=== PATIENT | male | born 1975 | race Caucasian/White ===

== ENCOUNTER 2020-06-21 17:21 | Inpatient (IN) | payer SELFPAY ==
[~2020-06-21] VITALS: Ht 177.8 cm; Wt 77.1 kg
[~2020-06-21 17:21] MED LIST: CEPH500 PO; NAPR500 PO
[2020-06-21 18:31] LABS: BASOPHILS ABSOLUTE AUTO 0.03 K/mm3 (0.00-0.23); BASOPHILS PERCENT AUTO 0 % (0-2); EOSINOPHILS ABSOLUTE AUTO 0.11 K/mm3 (0.00-0.68); EOSINOPHILS PERCENT AUTO 1 % (0-6); Hematocrit 48.2 % (37.0-53.0); Hemoglobin 16.5 g/dL (13.5-17.5); IMMATURE GRAN ABSOLUTE AUTO 0.04 K/mm3 (0.00-0.10); IMMATURE GRAN PERCENT AUTO 0 % (0-1); LYMPHOCYTES ABSOLUTE AUTO 1.47 K/mm3 (0.84-5.20); LYMPHOCYTES PERCENT AUTO 10 % (21-46); MONOCYTES ABSOLUTE AUTO 0.45 K/mm3 (0.16-1.47); MONOCYTES PERCENT AUTO 3 % (4-13); Mean Corpuscular HGB 29.6 pg (26.0-34.0); Mean Corpuscular HGB Conc 34.2 g/dL (31.5-36.5); Mean Corpuscular Volume 86 fL (80-100); Mean Platelet Volume 9.9 fL (9.1-12.4); NEUTROPHILS ABSOLUTE AUTO 13.12 K/mm3 (1.96-9.15); NEUTROPHILS PERCENT AUTO 86 % (41-73); Platelet Count 283 K/mm3 (150-400); RDW Coefficient Variation 12.3 % (11.7-14.2); RDW Standard Deviation 39.1 fL (35.1-46.3); Red Blood Cell Count 5.58 M/mm3 (4.30-5.90); White Blood Cell Count 15.22 K/mm3 (4.00-11.30)
[2020-06-21 18:53] LABS: Alanine Aminotransfer (ALT/SGP 21 U/L (12-78); Albumin, Blood 4.6 g/dL (3.4-5.0); Albumin/Globulin Ratio 1.4 (0.8-1.8); Alk Phos 79 U/L (50-136); Anion Gap 7 mmol/L (6-16); Aspartate Aminotrans (AST/SGOT 19 U/L (12-37); Bilirubin, Total 0.6 mg/dL (0.1-1.0); Blood Urea Nitrogen 14 mg/dL (8-24); CO2, Blood 25 mmol/L (21-32); Calcium, Blood 9.4 mg/dL (8.5-10.1); Chloride, Blood 110 mmol/L (98-108); Creatinine, Blood 0.93 mg/dL (0.60-1.20); Globulin, Blood 3.3 g/dL (2.2-4.0); Glomerular Filtration Rate >60 (60-); Glucose, Blood 117 mg/dL (70-99); Sodium, Blood 142 mmol/L (136-145); Total Protein, Blood 7.9 g/dL (6.4-8.2); Troponin I <0.015 ng/mL (0.000-0.040)
[2020-06-21 20:49] LABS: Source, Urine Clean Catch
[2020-06-21 20:55] LABS: Appearance, Urine Clear (Clear); Bilirubin, Urine Neg (Neg); Blood, Urine 1+ (Neg); Color, Urine Yellow (P-Yellow); Glucose Qualitative, Urine Neg (Neg); Ketones, Urine 3+ (Neg); Leukocyte Esterase, Urine 1+ (Neg); Nitrite, Urine Neg (Neg); Protein, Urine 1+ (Neg); Urobilinogen, Urine NORM (Normal)
[2020-06-21 21:02] LABS: Bacteria Few /hpf; Mucus Light (0-Heavy); Squamous Epithelial Cells Rare /hpf (Few)
[2020-06-22 01:01] LABS: U Amphetamine Screen Not Detected; U Barbituate Screen Not Detected; U Benzodiazapine Screen Not Detected; U Buprenorphine Screen Not Detected; U Cannabinoids Screen DETECTED; U Cocaine Screen Not Detected; U Methadone Screen Not Detected; U Methamphetamine Screen Not Detected; U Opiates Screen DETECTED; U Oxycodone Screen Not Detected; U Phencyclidine Screen Not Detected; U Propoxyphene Screen Not Detected
[2020-06-22 01:06] LABS: BASOPHILS ABSOLUTE AUTO 0.03 K/mm3 (0.00-0.23); BASOPHILS PERCENT AUTO 0 % (0-2); EOSINOPHILS ABSOLUTE AUTO 0.01 K/mm3 (0.00-0.68); EOSINOPHILS PERCENT AUTO 0 % (0-6); Hematocrit 44.7 % (37.0-53.0); Hemoglobin 15.6 g/dL (13.5-17.5); IMMATURE GRAN ABSOLUTE AUTO 0.08 K/mm3 (0.00-0.10); IMMATURE GRAN PERCENT AUTO 0 % (0-1); LYMPHOCYTES ABSOLUTE AUTO 0.82 K/mm3 (0.84-5.20); LYMPHOCYTES PERCENT AUTO 5 % (21-46); MONOCYTES PERCENT AUTO 2 % (4-13); Mean Corpuscular HGB 29.7 pg (26.0-34.0); Mean Corpuscular HGB Conc 34.9 g/dL (31.5-36.5); Mean Corpuscular Volume 85 fL (80-100); Mean Platelet Volume 9.9 fL (9.1-12.4); NEUTROPHILS ABSOLUTE AUTO 16.81 K/mm3 (1.96-9.15); NEUTROPHILS PERCENT AUTO 93 % (41-73); Platelet Count 262 K/mm3 (150-400); RDW Standard Deviation 38.1 fL (35.1-46.3); Red Blood Cell Count 5.25 M/mm3 (4.30-5.90); White Blood Cell Count 18.15 K/mm3 (4.00-11.30)
[2020-06-22 01:24] LABS: Alanine Aminotransfer (ALT/SGP 21 U/L (12-78); Albumin, Blood 3.8 g/dL (3.4-5.0); Albumin/Globulin Ratio 1.1 (0.8-1.8); Alk Phos 69 U/L (50-136); Anion Gap 6 mmol/L (6-16); Aspartate Aminotrans (AST/SGOT 13 U/L (12-37); Bilirubin, Total 0.5 mg/dL (0.1-1.0); Blood Urea Nitrogen 12 mg/dL (8-24); Bun/Creatinine Ratio 16.3 (12.0-20.0); CO2, Blood 23 mmol/L (21-32); Chloride, Blood 112 mmol/L (98-108); Creatinine, Blood 0.74 mg/dL (0.60-1.20); Globulin, Blood 3.4 g/dL (2.2-4.0); Glomerular Filtration Rate >60 (60-); Glucose, Blood 152 mg/dL (70-99); Potassium, Blood 4.1 mmol/L (3.5-5.5); Sodium, Blood 141 mmol/L (136-145); Total Protein, Blood 7.2 g/dL (6.4-8.2)
--- NOTE | 2020-06-22 04:34 | NUR ---
SHIFT SUMMARY ASSUMED CARE OF PT AT 2200. PT IS A/OX4. HEART SOUNDS REGULAR TELE SHOWS SINUS RHYTHMN AND PULSE BETWEEN 45-65 BPM, DENIES CP. LUNG SOUNDS CLEAR. PT C/O NEASEA Q4, MEDICATED PER EMAR, PT BEGINS TO SWEAT WHEN HE DRY HEAVES AND HAS BEEN GOING BACK AND FOR FROM BEING TOO HOT AND TOO COLD. PT C/O PAIN ABOUT Q4, MEDICATED PER EMAR. PT HAS NG TUBE HOOKED TO LOW INTERMITENT SUCTION, PT HAS SMALL AMOUNT OF YELLOW DRAINAGE. PT USES URINAL AT BEDISDE DUE TO EXCESSIVE AMOUNT OF CORDS. CALL LIGHT IN REACH, BED IN LOWEST POSTION, WILL CONTINUE TO MONITOR.
--- NOTE | 2020-06-22 19:33 | NUR ---
SHIFT SUMMARY. A&OX4, INDEPENDENT IN ROOM. PT CONTINUES WITH INTERMTTENT SEVERE LOWER ABD PAIN. PT'S PAIN HAS BEEN CONTROLLED WITH 1MG DILAUDID IV Q4 PRN, POST FIRST DILAUDID ADMINISTRATION PT BECAME NAUSEUS WITH DRY HEAVING, NAUSEA MANAGED WELL WITH CURRENT ORDERS. IV FENTANYL 50MCG WAS GIVEN DILAUDID APPEARED TO CAUSE SEVERE NAUSEA, PT REPORTED NO RELIEF WITH FENTANYL, DILAUDID WAS THEN REORDERED AND PAIN WAS MANAGED THE REMAINDER OF THE SHIFT. ABD XR COMPLETED THIS AM. PT CONTINUES WITH NG TO LOW INTERMITTENT SUCTION, UNABLE TO ACCURATELY DOCUMENT OUTPUT PT IS HAVING ICE CHIPS AND POSSIBLY DRINKING WATER FROM METLED ICE. IV FLUID ORDER COMPLETED AFTER 2L, DR. HANNA NOTIFIED AND RECIEVED ORDER FOR NS IV 75/HR. NO OTHER CHANGES OR CONCERNS.
--- NOTE | 2020-06-22 22:42 | NUR ---
06/22/205 INFORMED ON-CALL MD ABOUT PT'S PAIN MANAGEMENT CONCERNS. SHE REVIEWED HIS TESTS,VITALS AND RADIOLOGY AND DECLINED ANY OTHER MEDICATION CHANGES. WE MAY APPLY A HEATING PAD PRN.
--- NOTE | 2020-06-23 04:08 | NUR ---
CALLED HOSPITALIST INFORMED HOSPITALIST THAT THE NG TUBE IS SUCTIONING A DARK FLUID NOW, INSTEAD OF THE PREVIOUS CLEAR FLUID NOTED. NO NEW ORDERS, WILL CONTINUE TO MONITOR
[2020-06-23 05:38] LABS: BASOPHILS ABSOLUTE AUTO 0.04 K/mm3 (0.00-0.23); BASOPHILS PERCENT AUTO 0 % (0-2); EOSINOPHILS ABSOLUTE AUTO 0.04 K/mm3 (0.00-0.68); EOSINOPHILS PERCENT AUTO 0 % (0-6); Hematocrit 38.1 % (37.0-53.0); Hemoglobin 13.2 g/dL (13.5-17.5); IMMATURE GRAN ABSOLUTE AUTO 0.02 K/mm3 (0.00-0.10); IMMATURE GRAN PERCENT AUTO 0 % (0-1); LYMPHOCYTES ABSOLUTE AUTO 3.37 K/mm3 (0.84-5.20); LYMPHOCYTES PERCENT AUTO 23 % (21-46); MONOCYTES ABSOLUTE AUTO 1.26 K/mm3 (0.16-1.47); MONOCYTES PERCENT AUTO 9 % (4-13); Mean Corpuscular HGB 29.5 pg (26.0-34.0); Mean Corpuscular HGB Conc 34.6 g/dL (31.5-36.5); Mean Corpuscular Volume 85 fL (80-100); Mean Platelet Volume 10.2 fL (9.1-12.4); NEUTROPHILS ABSOLUTE AUTO 9.88 K/mm3 (1.96-9.15); NEUTROPHILS PERCENT AUTO 68 % (41-73); Platelet Count 230 K/mm3 (150-400); RDW Coefficient Variation 12.2 % (11.7-14.2); RDW Standard Deviation 37.8 fL (35.1-46.3); Red Blood Cell Count 4.47 M/mm3 (4.30-5.90); White Blood Cell Count 14.61 K/mm3 (4.00-11.30)
--- NOTE | 2020-06-23 07:47 | NUR ---
06/23/20 0645 PT IN BATHROOM FOR VOIDING. NG CANISTER WITH BROWN LIQUID AT 250 ML AND MARKED. RN HAD BROUGHT PAIN/NAUSEA MEDS HE C/O NOT GETTING ADEQUATE RELIEF THROUGHTOUT THE NIGHT WITH PAIN. PT NOW STATES HE PASSED SOME FLATUS AND HAS "NO" PAIN OR NAUSEA AT THIS TIME. PT HAS ALSO BEEN ASKING FREQEUNTLY FOR ICE CHIPS AND WATER. REMINDED TO ONLY TAKE SMALL AMTS. SEE INTAKE AND OUTPUT TOTALS.
--- NOTE | 2020-06-23 18:17 | NUR ---
SHIFT SUMMARY. PT CONTINUES WITH INTERMITTENT RLQ ABD PAIN THROUGHOUT SHIFT THAT WAS MANAGED WELL WITH CURRENT ORDERS. SEVERITY OF PAIN APPEARS TO HAVE IMPROVED TODAY COMPARED TO YESTERDAY, ALTHOUGH SEVERAL DOSES OF PAIN MEDICATION WERE REQUIRED TO MANAGE PAIN. NO N/V, SOB. PT STARTED ON CLEAR LIQUIDS FOR LUNCH, PT ONLY HAS TAKEN A FEW SIPS INTERMITTENTLY. PT'S MOTHER IN TO VISIT THIS AFTERNOON. NG TO LOW INTERMITTENT SUCTION, BROWN TINGED DRAINAGE WITH SEDIMENT OBSERVED. UNABLE TO ACCURATELY RECORD OUTPUT PT TAKE PO ICE CHIPS AND SMALL AMOUNT OF CLEAR LIQUIDS WILL STILL TO SUCTION. NO OTHER CHANGES OR CONCERNS.
--- NOTE | 2020-06-24 01:39 | NUR ---
06/24/20 0135 PT C/O SEVERE ABDOMINAL PAIN. NG TUBE DRAINING GREEN LIQUID.INFORMED PT THAT HE CAN GET MEDICATED WITH FENTYNL BUT STATES "IT DOESN'T WORK!" INFORMED HIM THAT I CAN BRING HIM A SHOT IN 20 MINUTES. PT IRRITATED ABOUT HAVING TO WAIT 20 MINUTES FOR MED.
[2020-06-24 05:20] LABS: BASOPHILS ABSOLUTE AUTO 0.06 K/mm3 (0.00-0.23); BASOPHILS PERCENT AUTO 0 % (0-2); EOSINOPHILS ABSOLUTE AUTO 0.11 K/mm3 (0.00-0.68); EOSINOPHILS PERCENT AUTO 1 % (0-6); Hematocrit 41.5 % (37.0-53.0); Hemoglobin 14.6 g/dL (13.5-17.5); IMMATURE GRAN ABSOLUTE AUTO 0.05 K/mm3 (0.00-0.10); IMMATURE GRAN PERCENT AUTO 0 % (0-1); LYMPHOCYTES ABSOLUTE AUTO 4.52 K/mm3 (0.84-5.20); LYMPHOCYTES PERCENT AUTO 28 % (21-46); MONOCYTES ABSOLUTE AUTO 1.46 K/mm3 (0.16-1.47); MONOCYTES PERCENT AUTO 9 % (4-13); Mean Corpuscular HGB 29.8 pg (26.0-34.0); Mean Corpuscular HGB Conc 35.2 g/dL (31.5-36.5); Mean Corpuscular Volume 85 fL (80-100); Mean Platelet Volume 10.2 fL (9.1-12.4); NEUTROPHILS PERCENT AUTO 62 % (41-73); Platelet Count 246 K/mm3 (150-400); RDW Standard Deviation 36.8 fL (35.1-46.3)
--- NOTE | 2020-06-24 08:13 | NUR ---
06/24/20 0500 PT MEIDATED PER MAR FOR ABDOMINAL DISCOMFORT. NG TUBE TO LOW INT. SUCTION AND DRAINING GREEN LIQUID. IV FLUIDS AT 75ML/HOUR.
--- NOTE | 2020-06-24 10:37 | NUR ---
ABD CRAMPING AND RESPONSE TO PRN MEDICATIONS: PATIENT REPORTED SUDDEN ONSET OF SHARP, CRAMPING ABDOMINAL PAIN WITH NAUSEA. PATIENT TURNED INTERMITTANT SUCTION BACK ON INDEPENDENTLY. NO CHANGES TO NG DISCHARGE. PATIENT HUNCHED OVER IN BED REQUESTING PRNS. MEDICATED WITH PRN ZOFRAN AND DILAUDID PER PRNS ORDERS (SEE EMAR). PATIENT HAD REPORTED THAT THE DILAUDID MAKES HIM FLUSH AND NAUSEATED. MEDICATED WITH ANTI-EMETIC FIRST. AFTER ADMINISTERING DILAUDID PER POLICY, THE PATIENT REPORTED "FEELING WEIRD" AND "HIGH SHIT". VITALS TAKEN. LOW HR NOTED, CONSISTENT WITH OTHER TIMES DURING HIS ADMISSION. RR STABLE AT 16. PATIENT CONTINUES TO BE ALERT AND ORIENTED AND WAKENS EASILY WHEN RN ENTERS THE ROOM. SP02 STABLE AT 98-100% ON ROOM AIR. PROVIDED WITH A COOL CLOTH, COOL WATER. PATIENT REPORTED FEELING BETTER AFTER 10 MINUTES WITH THE RN IN THE ROOM. PATIENT RESTING IN ROOM WITH CONTINUOUS NIBP ON HIS FINGER FOR SP02 AND HR.
--- NOTE | 2020-06-24 10:51 | NUR ---
NOTIFIED DR. JAVIER OF ABDOMINAL PAIN AND REACTION TO DILAUDID. NO NEW ORDERS AT THIS TIME.
--- NOTE | 2020-06-24 14:03 | NUR ---
NG PLACEMENT: DISCUSSED PLACEMENT OF NG TUBE WITH DR. WAGNER. VERIFIED THAT THE NG TUBE NEEDS TO BE PULLED BACK SLIGHTLY.
--- NOTE | 2020-06-24 19:01 | NUR ---
PAIN CONTROL AND CHANGE TO PRN MEDICATIONS: PATIENT PAIN HAS BEEN CONTROLLED WITH PRN MEDICATIONS THIS AFTERNOON. PATIENT HAS NOT EXPERIENCED A SEVERE EPISODE OF PAIN HE DID THIS MORNING. SPOKE WITH DR. REVELES AND DECREASING THE PRN PAIN MEDICATION TO BETTER REFLECT THIS STATUS. NEW ORDER RECEIVED AND PLACED.
--- NOTE | 2020-06-24 19:05 | NUR ---
BREAKTHROUGH PAIN: LATE ENTRY FOR 11:50 PATIENT EXPERIENCING EXTREME BREAKTHROUGH PAIN. PATIENT ROCKING AT SIDE OF BED, TELLING THE NURSE THAT HIS STOMACH IS "GOING TO EXPLODE". PATIENT REPORTS FEELING HOT AND UNCOMFORTABLE. PATIENT PINPOINTS THE PAIN TO THE CENTER OF HIS ABDOMEN. DENIES RADIATION TO THE BACK. DENIES NUMBNESS/TINGLING. VITALS ARE STABLE. NOTIFIED DR. JAVIER. DR. JAVIER INTO THE ROOM. NEW ORDERS ENTERED. PATIENT ABLE TO RELAX AND HIS PAIN DECREASED TO A MANAGEABLE LEVEL.
--- NOTE | 2020-06-24 19:37 | NUR ---
END OF SHIFT SUMMARY: PATIENT CONTINUED TO HAVE ABDOMINAL PAIN. SEE NURSE'S NOTE ABOUT BREAKTHROUGH PAIN EXPRIENCED THIS MORNING. PATIENT PAIN CONTROLLED FOR THE REST OF THE AFTERNOON WITH ORDERED PRN MEDICATIONS. PATIENT ABLE TO TAKE A SHOWER. PATIENT REPORTS FEELING THE NEED TO PASS GAS, BUT REPORTS THAT IT OFTEN DOESN'T COME OUT. PATIENT CONTINUES TO HAVE DARK GREEN/YELLOW FLUID FROM THE NG TUBE. NG TUBE RETRACTED SLIGHTLY PER DR. REVELES'S ORDER (SEE NURSE'S NOTE). ENCOURAGED PATIENT TO AMBULATE POSSIBLE. K-PAD SET UP IN THE ROOM. PATIENT REPORTS SOME RELIEF WITH THE HEAT PAD. DR. HOFFMANN ROUNDED ON THE PATIENT THIS AFTERNOON. PATIENT REPORTED A DECREASE IN ANXIETY AFTER BEING ABLE TO SPEAK WITH THE SURGEON.
--- NOTE | 2020-06-25 04:46 | NUR ---
SHIFT SUMMARY: VSS. TEMP 99.0. PULSE 52-60. ABD FIRM, TENDER THROUGHOUT, BOWEL TONES ABSENT, NO FLATUS, NO BMS. PT MEDICATED FOR PAIN Q 4 HRS. NAUSEA REPORTED ONLY W/IV DILAUDID- ADMINISTRATION W/ ANTIEMETICS HELPFUL. NGT IN PLACE W/ INT, LOW SUCTION PUTTING OUT DARK BROWN/GREEN LIQUID. LOZENGES ORDERED FOR SORE THROAT, PT STATES HELPFUL. REPORTS HE WAS NOT ABLE TO SLEEP TONIGHT- DENIES PAIN BEING THE CAUSE OF INSOMNIA. NO ACUTE CHANGES TONIGHT. WILL CONT TO MONITOR.
[2020-06-25 05:31] LABS: BASOPHILS ABSOLUTE AUTO 0.04 K/mm3 (0.00-0.23); BASOPHILS PERCENT AUTO 0 % (0-2); EOSINOPHILS ABSOLUTE AUTO 0.15 K/mm3 (0.00-0.68); EOSINOPHILS PERCENT AUTO 1 % (0-6); Hematocrit 41.3 % (37.0-53.0); Hemoglobin 14.3 g/dL (13.5-17.5); IMMATURE GRAN ABSOLUTE AUTO 0.05 K/mm3 (0.00-0.10); IMMATURE GRAN PERCENT AUTO 0 % (0-1); LYMPHOCYTES ABSOLUTE AUTO 2.67 K/mm3 (0.84-5.20); LYMPHOCYTES PERCENT AUTO 19 % (21-46); MONOCYTES ABSOLUTE AUTO 1.38 K/mm3 (0.16-1.47); MONOCYTES PERCENT AUTO 10 % (4-13); Mean Corpuscular HGB 29.7 pg (26.0-34.0); Mean Corpuscular HGB Conc 34.6 g/dL (31.5-36.5); Mean Corpuscular Volume 86 fL (80-100); Mean Platelet Volume 10.5 fL (9.1-12.4); NEUTROPHILS ABSOLUTE AUTO 9.84 K/mm3 (1.96-9.15); NEUTROPHILS PERCENT AUTO 70 % (41-73); Platelet Count 242 K/mm3 (150-400); RDW Coefficient Variation 11.9 % (11.7-14.2); RDW Standard Deviation 37.2 fL (35.1-46.3); Red Blood Cell Count 4.82 M/mm3 (4.30-5.90); White Blood Cell Count 14.13 K/mm3 (4.00-11.30)
--- NOTE | 2020-06-25 13:05 | NUR ---
SB FT THIS AM, STARTED 0900 & CONTINUES @ THIS TIME. PT C/O INCREASED ABD PAIN, HAVE GIVEN DILAUADID & FENTANYL. DR JAVIER ORDER EXTRA DOSE DILAUDID 2MG, STATE TO CONTACT SURG & INFORM THEM OF INCREASED PAIN. DR CHINO OFFICE NOTIFIED.
--- NOTE | 2020-06-25 16:10 | NUR ---
SUMMARY PT IS A/O X4, IND IN ROOM. DX SBO. BT CONTINUE NEARLY ABSENT, PT STATE NOT PASSING GAS THIS AM. HE STATE CONTINUING ABD PAIN, INTERMITTANTLY SHARP CRAMPING. HAVE GIVEN IV DILAUDID & FENTANYL FOR CONTROL HOWEVER PT STATE INCOMPLETE RELIEF, DR JAVIER & DR ALEMAN AWARE, HE WAS GIVEN EXTRA DOSE 2MG DILAUDID TODAY TO HELP HIM COPE w PAIN DURING SMALL BOWEL FOLLOWTHRU PROCEDURE. THIS PROCEDURE HAS BEEN ONGOING T/O DAY & CONTINUES @ THIS TIME. SO FAR NO BM, HOWEVER DR ALEMAN INFORM PT THAT WE ARE MAKING PROGRESS. NGT WAS @ LIS THIS AM HOWEVER HAS BEEN CLAMPED SINCE 0900/RADIOLOGY FOR SBFT. PT IS NPO HOWEVER DR ALEMAN STATE OK FOR SM AMTS SIPS/CHIPS. PT STATE NAUSEA w IV PAIN MEDS HAVE GIVEN ZOFRAN & REGLAN FOR RELIEF. VSS.
--- NOTE | 2020-06-26 01:10 | NUR ---
CALL TO HOSPITALIST DR. MARINELLI. PT REQUESTING SOMETHING TO HELP HIM SLEEP. NPO STATUS W/ LOW INTERMITTENT SUCTION. UNABLE TO ADMINISTER PO MEDS AT THIS TIME. ORDER RECEIVED FOR OT DOSE OF ATIVAN 1MG, MAY REPEAT IF PT STILL UNABLE TO SLEEP. NOTED.
--- NOTE | 2020-06-26 05:21 | NUR ---
SHIFT SUMMARY: VSS. TEMP 99.0-99.2. PULSES 59-62. ABD FIRM, BOWEL TONES HYPERACTIVE. NO FLATUS OR BM AT THIS TIME. NGT W/ INTERMITTENT LOW SUCTION. PT HAD 2+ LITERS OF GASTRIC OUTPUT DUE TO NGT CLAMPED DURING DAY SHIFT. PT REPORTS FEELING MUCH LESS PAIN TONIGHT. MED X1 AT THE START OF THE NIGHT W/COMPLETE RELIEF OF PAIN. NO NAUSEA. ATIVAN GIVEN FOR INSOMNIA- HELPFUL. NO ACUTE CHANGES. REMAINS NPO W/ SMALL SIPS AND ICE CHIPS ONLY.
[2020-06-26 05:30] LABS: BASOPHILS ABSOLUTE AUTO 0.04 K/mm3 (0.00-0.23); BASOPHILS PERCENT AUTO 0 % (0-2); EOSINOPHILS ABSOLUTE AUTO 0.14 K/mm3 (0.00-0.68); EOSINOPHILS PERCENT AUTO 1 % (0-6); Hematocrit 42.6 % (37.0-53.0); Hemoglobin 14.9 g/dL (13.5-17.5); IMMATURE GRAN ABSOLUTE AUTO 0.03 K/mm3 (0.00-0.10); IMMATURE GRAN PERCENT AUTO 0 % (0-1); LYMPHOCYTES ABSOLUTE AUTO 2.23 K/mm3 (0.84-5.20); LYMPHOCYTES PERCENT AUTO 16 % (21-46); MONOCYTES PERCENT AUTO 11 % (4-13); Mean Corpuscular HGB 29.8 pg (26.0-34.0); Mean Corpuscular Volume 85 fL (80-100); Mean Platelet Volume 10.6 fL (9.1-12.4); NEUTROPHILS ABSOLUTE AUTO 10.13 K/mm3 (1.96-9.15); NEUTROPHILS PERCENT AUTO 72 % (41-73); Platelet Count 272 K/mm3 (150-400); RDW Coefficient Variation 12.2 % (11.7-14.2); RDW Standard Deviation 37.4 fL (35.1-46.3); White Blood Cell Count 14.07 K/mm3 (4.00-11.30)
[2020-06-26 05:58] LABS: Alanine Aminotransfer (ALT/SGP 44 U/L (12-78); Albumin, Blood 3.8 g/dL (3.4-5.0); Albumin/Globulin Ratio 1.1 (0.8-1.8); Alk Phos 86 U/L (50-136); Anion Gap 6 mmol/L (6-16); Aspartate Aminotrans (AST/SGOT 26 U/L (12-37); Bilirubin, Total 2.5 mg/dL (0.1-1.0); Blood Urea Nitrogen 23 mg/dL (8-24); Bun/Creatinine Ratio 23.9 (12.0-20.0); CO2, Blood 31 mmol/L (21-32); Calcium, Blood 9.3 mg/dL (8.5-10.1); Chloride, Blood 111 mmol/L (98-108); Creatinine, Blood 0.96 mg/dL (0.60-1.20); Globulin, Blood 3.6 g/dL (2.2-4.0); Glomerular Filtration Rate >60 (60-); Glucose, Blood 114 mg/dL (70-99); Potassium, Blood 3.4 mmol/L (3.5-5.5); Sodium, Blood 148 mmol/L (136-145); Total Protein, Blood 7.4 g/dL (6.4-8.2)
--- NOTE | 2020-06-26 07:49 | NUR ---
ASSUMED CARE OF PT- BEDSIDE REPORT COMPLETED WITH NIGHT WALT DAMIAN. PT RETURNED TO THE ROOM FROM IMAGING AT THE TIME OF BEDSIDE REPORT. IVF RECONNECTED AND NG TUBE RECONNECTED TO LOW INTERMITTENT SUCTION. PER REPORT NO BT WERE AUDIBLE YESTERDAY BUT LAST NIGHT THERE WERE, THIS MAY INDICATE SOME IMPROVEMENT. PT WAS MEDICATED ONCE FOR PAIN T/O THE NIGHT. PT HAS HAD NO FLATUS OR STOOLS OF YET. WILL CTM.
--- NOTE | 2020-06-26 15:28 | NUR ---
LATE ENTRY THIS MORNING PT STATED HE WAS BEGINNING TO FEEL ANXIOUS AND REQUESTED SOME ATIVAN THAT HE RECIEVED A OT DOSE OF LAST NIGHT TO HELP HIM CALM DOWN. CALLED DR JAVIER TO REQUEST THE MEDICATION. WILL COME TO SEE THE PT WHEN HE IS DONE WITH MORNING ROUNDS. NO NEW ORDERS AT THIS TIME. LATE ENTRY CALLED DR JAVIER AGAIN THE PT IS ANXIOUSLY AWAITING TO HEAR FROM HIM AGAIN OR DR ALEMAN. PT NOW HAS A FAMILY MEMBER AT THE BEDSIDE WHO ALSO WISHES TO SPEAK TO THE DR. DR JAVIER WILL COME TO SEE THE PT SHORTLY. NO NEW ORDERS AT THIS TIME. LATE ENTRY DR ALEMAN AGREED THAT THE PT COULD POSSIBLY GO HOME. EXPLAINED TO THE PT THAT DR ALEMAN CAN CLEAR THE PT, HOWEVER DISCHARGE ORDERS COME FROM THE HOSPITALIST. CALLED DR JAVIER AND UPDATED HIM ON THE VISIT FROM DR ALEMAN. HE WILL SPEAK TO DR ALEMAN AND COME SEE THE PT SHORTLY. LATE ENTRY CALLED DR JARAMILLO- PT BECOMING MORE ANXIOUS AND WORKED UP WANTS TO LEAVE THE HOSPITAL. WANTS TO SEE A DOCTOR AGAIN DR JARAMILLO STATED THE PT CAN LEAVE AMA IF HE WANTS TO GO AT THIS TIME. DR JAVIER WILL BE UP TO SPEAK TO THE PT. LATE ENTRY DR JAVIER CAME TO SEE THE PT (RN NOT PRESENT)- PT CALLED AFTER HE WAS GONE AND STATED HE WAS TOLD TO CALL THE RN WHEN HE DECIDED IF HE WAS GOING TO GO HOME. PT AWAITING DISCHARGE ORDERS. LATE ENTRY CALLED DR JAVIER UNABLE TO GET THROUGH, CALLED DR JARAMILLO PT TO GO AMA IF DC TODAY. PT STATES DR JAVIER WAS GOING TO WRITE DC ORDERS. SPOKE TO DIRECTOR [employer] М[employer]РИНА SHE CALLED DR JAVIER AND HE CONFIRMED HE RECOMENDS THE PT STAY ONE MORE DAY PT CAN LEAVE TODAY BUT IT WILL BE AMA. LATE ENTRY PT LEFT AMA PT EXTREMELY WORKED UP AT THIS TIME WANTS TO LEAVE THE HOSPITAL AMA, REFUSED TO SIGN THE AMA FORM. NG TUBE AND IV DC'D PRIOR TO PT LEAVING. PT AWARE OF THE RISKS. FAMILY MEMBER PRESENT AND REQUESTED PT ADVOCATE INFORMATION, PROVIDED HER WITH BUISINESS CARD. PT REFUSED ESCORT AND LEFT AMA.
== END 2020-06-26 14:13 | disposition left against medical advice (07) | DRG 389 ==
LOC: ER 17:21 → MEDS 17:22
PROVIDERS: Family Medicine; Physician Assistant; Surgery; ADMIT Internal Medicine
DX: K56.609 Unspecified intestinal obstruction, unspecified as to partial versus complete obstruction (principal); E87.2 Acidosis; F17.210 Nicotine dependence, cigarettes, uncomplicated; R82.71 Bacteriuria; R00.1 Bradycardia, unspecified; Z53.29 Procedure and treatment not carried out because of patient's decision for other reasons
CPT/HCPCS: 36415; 71275; 74018; 74022; 74175; 74176; 74250; 80053; 81001; 83605; 83690; 84484; 85025; 85651; 86141; 87040; 87086; 93005; 93010; 96361; 96372; 96374-59; 96375; 96376; 99285-25; C9113; G0378; J1170; J1650; J2060; J2405; J2765; J3010; J7030; Q9967

== ENCOUNTER 2020-06-27 09:57 | Inpatient (IN) | payer SELFPAY ==
[~2020-06-27] VITALS: Ht 177.8 cm; Wt 72.5 kg
[2020-06-27 10:40] LABS: BASOPHILS ABSOLUTE AUTO 0.03 K/mm3 (0.00-0.23); BASOPHILS PERCENT AUTO 0 % (0-2); EOSINOPHILS ABSOLUTE AUTO 0.16 K/mm3 (0.00-0.68); EOSINOPHILS PERCENT AUTO 1 % (0-6); Hematocrit 43.4 % (37.0-53.0); Hemoglobin 15.9 g/dL (13.5-17.5); IMMATURE GRAN ABSOLUTE AUTO 0.04 K/mm3 (0.00-0.10); IMMATURE GRAN PERCENT AUTO 0 % (0-1); LYMPHOCYTES ABSOLUTE AUTO 2.35 K/mm3 (0.84-5.20); LYMPHOCYTES PERCENT AUTO 19 % (21-46); MONOCYTES PERCENT AUTO 9 % (4-13); Mean Corpuscular HGB 30.6 pg (26.0-34.0); Mean Corpuscular HGB Conc 36.6 g/dL (31.5-36.5); Mean Corpuscular Volume 84 fL (80-100); Mean Platelet Volume 10.4 fL (9.1-12.4); NEUTROPHILS ABSOLUTE AUTO 8.53 K/mm3 (1.96-9.15); NEUTROPHILS PERCENT AUTO 70 % (41-73); Platelet Count 293 K/mm3 (150-400); RDW Coefficient Variation 11.9 % (11.7-14.2); RDW Standard Deviation 35.8 fL (35.1-46.3); White Blood Cell Count 12.21 K/mm3 (4.00-11.30)
[2020-06-27 10:58] LABS: Alanine Aminotransfer (ALT/SGP 55 U/L (12-78); Albumin, Blood 3.9 g/dL (3.4-5.0); Alk Phos 89 U/L (50-136); Anion Gap 9 mmol/L (6-16); Aspartate Aminotrans (AST/SGOT 25 U/L (12-37); Bilirubin, Total 2.5 mg/dL (0.1-1.0); Blood Urea Nitrogen 23 mg/dL (8-24); Bun/Creatinine Ratio 25.8 (12.0-20.0); CO2, Blood 25 mmol/L (21-32); Calcium, Blood 9.5 mg/dL (8.5-10.1); Chloride, Blood 106 mmol/L (98-108); Creatinine, Blood 0.89 mg/dL (0.60-1.20); Globulin, Blood 3.9 g/dL (2.2-4.0); Glomerular Filtration Rate >60 (60-); Glucose, Blood 116 mg/dL (70-99); Potassium, Blood 3.3 mmol/L (3.5-5.5); Sodium, Blood 140 mmol/L (136-145); Total Protein, Blood 7.8 g/dL (6.4-8.2)
[2020-06-27 17:37] LABS: Source, Urine Clean Catch
[2020-06-27 17:41] LABS: Appearance, Urine Clear (Clear); Blood, Urine 1+ (Neg); Color, Urine Yellow (P-Yellow); Glucose Qualitative, Urine Neg (Neg); Ketones, Urine 3+ (Neg); Leukocyte Esterase, Urine 1+ (Neg); Nitrite, Urine Neg (Neg); Protein, Urine 2+ (Neg); Urobilinogen, Urine 2+ (Normal); pH, Urine 6.5 (5.0-8.0)
[2020-06-27 17:48] LABS: Bilirubin, Urine 1+ (Neg)
[2020-06-27 17:49] LABS: Bacteria Few /hpf; Mucus Light (0-Heavy); Red Blood Cells, Urine 0-2 /hpf (0-2); Squamous Epithelial Cells Not Seen /hpf (Few); White Blood Cells, Urine 0-2 /hpf (0-5)
--- NOTE | 2020-06-27 18:17 | NUR ---
NG TUBE CLARIFICATION; PER HOSPITALIST (DR JARAMILLO) NG TUBE TO BE PLACED ONCE PATIENT BEGINS ACTIVELY VOMITING. RECEIVED ORDER FROM RESIDENT (DR BELCHER) TO PLACE NG TUBE AT THIS TIME; THIS NURSE UNABLE TO CONTACT RESIDENT; DR JARAMILLO CONTACTED IN THIS MATTER; DR JARAMILLO STATES NG TUBE MAY BE LEFT OUT AT THIS TIME.
--- NOTE | 2020-06-27 19:28 | NUR ---
SHIFT SUMMARY: PATIENT ADMIT FROM ED THIS SHIFT. PT A&O; CALM AND COOPERATIVE WITH CARE; INDEPENDENT IN ROOM. MEDICATED FOR ABD PAIN PER EMAR. SURGICAL CONSULT (DR CHINO) THIS SHIFT; ELPLORATORY SURGERY SCHEDULED FOR MONDAY. IV REHYDRATION CONTINUING. REPORT GIVEN TO ONCOMING RN.
--- NOTE | 2020-06-27 21:02 | NUR ---
PT UP AMBULATING ENTIRE LENGTH OF HALLS WITH GAIT SLOW AND STEADY X 3 LAPS; THIS NURSE OBSERVED VERY SMALL BROWN STOOL IN TOILET; THIS NURSE ASKED PT TO SHOW STAFF EACH BM HE HAS THIS EVENING.
--- NOTE | 2020-06-28 04:04 | NUR ---
SHIFT SUMMARY: 45 Y/O SLENDER MALE HAD NUMEROUS SMALL BOWEL MOVEMENTS THIS SHIFT THAT WERE SMALL BROWN OR LOOSE DIARRHEA THAT WERE OBSERVED BY THIS NURSE; PT WAS UP AMBULATING AROUND ENTIRE LOOP OF DEPARTMENT WITH GAIT STEADY AND EVEN; PASSING FLATUS; PT DECLINED TO GET COVID 19 TEST HE BELIEVES MD WILL DISCHARGE HOME NOW AFTER PASSING STOOLS; DENIES ABD PAIN; HAPPY AND COOPERATIVE; NPO; BED LOW POSITION WITH CALL LIGHT AT SIDE.
[2020-06-28 05:48] LABS: BASOPHILS ABSOLUTE AUTO 0.05 K/mm3 (0.00-0.23); BASOPHILS PERCENT AUTO 1 % (0-2); EOSINOPHILS ABSOLUTE AUTO 0.38 K/mm3 (0.00-0.68); EOSINOPHILS PERCENT AUTO 4 % (0-6); Hematocrit 37.9 % (37.0-53.0); Hemoglobin 13.1 g/dL (13.5-17.5); IMMATURE GRAN ABSOLUTE AUTO 0.03 K/mm3 (0.00-0.10); IMMATURE GRAN PERCENT AUTO 0 % (0-1); LYMPHOCYTES ABSOLUTE AUTO 2.82 K/mm3 (0.84-5.20); LYMPHOCYTES PERCENT AUTO 27 % (21-46); MONOCYTES ABSOLUTE AUTO 0.97 K/mm3 (0.16-1.47); MONOCYTES PERCENT AUTO 9 % (4-13); Mean Corpuscular HGB Conc 34.6 g/dL (31.5-36.5); Mean Corpuscular Volume 87 fL (80-100); Mean Platelet Volume 11.2 fL (9.1-12.4); NEUTROPHILS ABSOLUTE AUTO 6.03 K/mm3 (1.96-9.15); NEUTROPHILS PERCENT AUTO 59 % (41-73); Platelet Count 247 K/mm3 (150-400); RDW Standard Deviation 38.5 fL (35.1-46.3); Red Blood Cell Count 4.37 M/mm3 (4.30-5.90); White Blood Cell Count 10.28 K/mm3 (4.00-11.30)
[2020-06-28 06:23] LABS: Anion Gap 7 mmol/L (6-16); Blood Urea Nitrogen 25 mg/dL (8-24); Bun/Creatinine Ratio 29.3 (12.0-20.0); CO2, Blood 25 mmol/L (21-32); Calcium, Blood 8.5 mg/dL (8.5-10.1); Chloride, Blood 114 mmol/L (98-108); Creatinine, Blood 0.85 mg/dL (0.60-1.20); Glomerular Filtration Rate >60 (60-); Glucose, Blood 82 mg/dL (70-99); Potassium, Blood 3.1 mmol/L (3.5-5.5); Sodium, Blood 146 mmol/L (136-145)
--- NOTE | 2020-06-28 13:48 | NUR ---
PT DISCHARGE AT 1230 WITH MOTHER TO TRANSPORT. PT HAD BM ALL NIGHT AND WAS PASSING GAS. BOWEL TONES IN ALL 4 QUADRANTS. PT DENIED ANY PAIN AND WAS TOLERATING CLEAR LIQUIDS. PT INDEPENDENT AND USED CALL LIGHT APPROPRIATELY. PT STATED HE WOULD NOT TRY ANYTHING OTHER THAN THE CLEAR LIQUIDS HE DID NOT WANT ANY PROBLEMS. PT STATED HE WAS READY TO GO HOME. ALL PAPERWORK WAS SIGNED AND EDUCATIONAL MATERIAL SENT WITH PT. PACKET TO SET UP WITH A PCP WAS SENT WITH PT WELL. PT REFUSED ESCORT OUT OF HOSPITAL. ALL PERSONAL BELONGINGS COLLECTED AND TAKEN WITH PT.
== END 2020-06-28 12:35 | disposition home or self-care (01) | DRG 390 ==
LOC: ER 09:57 → MEDS 11:22
PROVIDERS: Physician Assistant; Student in an Organized Health Care Education/Training Program; ADMIT Hospitalist
DX: K56.600 Partial intestinal obstruction, unspecified as to cause (principal); D72.829 Elevated white blood cell count, unspecified; E87.6 Hypokalemia; F17.210 Nicotine dependence, cigarettes, uncomplicated
CPT/HCPCS: 36415; 74177; 80048; 80053; 81001; 83690; 85025; 87086; 96374-59; 96375; 99285-25; A9270; A9270-GY; J1170; J1200; J1885; J2765; J3480; J7030; Q9967

== ENCOUNTER 2020-11-01 23:09 | Emergency (ER) | payer SELFPAY ==
[~2020-11-01] VITALS: Ht 177.8 cm; Wt 81.7 kg
[2020-11-02 00:08] LABS: BASOPHILS ABSOLUTE AUTO 0.06 K/mm3 (0.00-0.23); BASOPHILS PERCENT AUTO 0 % (0-2); EOSINOPHILS ABSOLUTE AUTO 0.06 K/mm3 (0.00-0.68); EOSINOPHILS PERCENT AUTO 0 % (0-6); Hematocrit 42.6 % (37.0-53.0); Hemoglobin 15.1 g/dL (13.5-17.5); IMMATURE GRAN ABSOLUTE AUTO 0.08 K/mm3 (0.00-0.10); IMMATURE GRAN PERCENT AUTO 1 % (0-1); LYMPHOCYTES ABSOLUTE AUTO 1.66 K/mm3 (0.84-5.20); LYMPHOCYTES PERCENT AUTO 9 % (21-46); MONOCYTES ABSOLUTE AUTO 0.77 K/mm3 (0.16-1.47); MONOCYTES PERCENT AUTO 4 % (4-13); Mean Corpuscular HGB 30.3 pg (26.0-34.0); Mean Corpuscular HGB Conc 35.4 g/dL (31.5-36.5); Mean Corpuscular Volume 86 fL (80-100); Mean Platelet Volume 10.2 fL (9.1-12.4); NEUTROPHILS ABSOLUTE AUTO 15.09 K/mm3 (1.96-9.15); NEUTROPHILS PERCENT AUTO 85 % (41-73); Platelet Count 247 K/mm3 (150-400); RDW Coefficient Variation 12.6 % (11.7-14.2); RDW Standard Deviation 39.1 fL (35.1-46.3); Red Blood Cell Count 4.98 M/mm3 (4.30-5.90); White Blood Cell Count 17.72 K/mm3 (4.00-11.30)
[2020-11-02 00:27] LABS: Alanine Aminotransfer (ALT/SGP 26 U/L (12-78); Albumin, Blood 3.7 g/dL (3.4-5.0); Albumin/Globulin Ratio 1.1 (0.8-1.8); Alk Phos 74 U/L (50-136); Anion Gap 6 mmol/L (6-16); Aspartate Aminotrans (AST/SGOT 16 U/L (12-37); Bilirubin, Total 0.7 mg/dL (0.1-1.0); Blood Urea Nitrogen 15 mg/dL (8-24); Bun/Creatinine Ratio 13.3 (12.0-20.0); CO2, Blood 28 mmol/L (21-32); Calcium, Blood 8.8 mg/dL (8.5-10.1); Chloride, Blood 109 mmol/L (98-108); Creatinine, Blood 1.13 mg/dL (0.60-1.20); Globulin, Blood 3.3 g/dL (2.2-4.0); Glomerular Filtration Rate >60 (60-); Glucose, Blood 114 mg/dL (70-99); Potassium, Blood 3.7 mmol/L (3.5-5.5); Sodium, Blood 143 mmol/L (136-145)
[2020-11-02 03:18] LABS: Source, Urine Voided
[2020-11-02 03:21] LABS: Appearance, Urine Clear (Clear); Bilirubin, Urine Neg (Neg); Blood, Urine Neg (Neg); Color, Urine Amber (P-Yellow); Glucose Qualitative, Urine Neg (Neg); Ketones, Urine 1+ (Neg); Leukocyte Esterase, Urine 1+ (Neg); Nitrite, Urine Neg (Neg); Protein, Urine 1+ (Neg); Specific Gravity, Urine 1.025 (1.003-1.022); Urobilinogen, Urine 1+ (Normal)
[2020-11-02 03:26] LABS: Bacteria Many /hpf; Red Blood Cells, Urine 0-2 /hpf (0-2); Squamous Epithelial Cells Not Seen /hpf (Few)
[2020-11-02 03:27] LABS: Mucus Mod (0-Heavy)
[2020-11-02] MEDS ORDERED: Flomax0.4 MG PO (03:50)
[2020-11-02] MEDS ORDERED: Ondansetron Odt8 MG MM (03:50)
[2020-11-02] MEDS ORDERED: IBU600 MG PO (03:50)
== END 2020-11-02 04:40 | disposition home or self-care (01) ==
LOC: ER 23:09
PROVIDERS: Emergency Medicine
DX: N13.2 Hydronephrosis with renal and ureteral calculous obstruction (principal); Z87.891 Personal history of nicotine dependence
CPT/HCPCS: 36415; 74176; 80053; 81001; 83605; 85025; 87086; 96361; 96365; 96374; 96375; 96376; 99284-25; A9270; J0696; J2270; J2405; J7030